=== PATIENT | male | born 1985 | race Caucasian/White ===

== ENCOUNTER 2021-11-05 12:44 | Emergency (ER) | payer OTHER ==
[~2021-11-05] VITALS: Ht 165.1 cm; Wt 72.6 kg
== END 2021-11-05 13:50 | disposition left against medical advice (07) ==
LOC: M.ERS 12:44
DX: R06.02 Shortness of breath (principal); Z53.21 Procedure and treatment not carried out due to patient leaving prior to being seen by health care provider